=== PATIENT | female | born 1935 | race Caucasian/White ===

== ENCOUNTER 2019-11-10 10:30 | Day surgery (SDC) | payer MEDICARE, BC ==
[~2019-11-10] VITALS: Ht 177.8 cm; Wt 63.5 kg
[~2019-11-10 10:30] MED LIST: EYE DROPS 15 ML15 ML OP; FOLIC ACID 11 MG/TA1 PO; MIRALAX PA17 GM/Dose PO; MYRBETR50MG PO; NORCO 325 MG-51 TAB PO; OSCAL 500 TAB500 MG PO; RESTORIL 77.5 MG/CAP PO; TEMAZEPAM; VITAMIN C500 MG PO
[2019-11-10 11:15] VITALS: BP 149/86; PULSE 65; TEMP 97.4
[2019-11-10] MEDS ORDERED: FEMARA PO (11:22)
[2019-11-10] MEDS ORDERED: MYRBETR25MG PO (11:22)
[2019-11-10] MEDS ORDERED: PRIL40 PO (11:23)
[2019-11-10] MEDS ORDERED: MULTIPLE VITAMI1 CAP PO (11:24)
[2019-11-10] MEDS ORDERED: CALCIUM CITRAT950 MG PO (11:24)
[2019-11-10] MEDS ORDERED: HAIRSKINNAILS PO (11:24)
[2019-11-10] MEDS ORDERED: FLEET ENEM1 BOT/133 RC (11:26)
[2019-11-10] MEDS ORDERED: COLACE 100100 MG/CAP PO (11:28)
--- NOTE | 2019-11-10 11:29 | NUR ---
TO RM AT 1040 CALL LIGHT IN REACH FAMILY AT BEDSIDE
--- NOTE | 2019-11-10 14:01 | NUR ---
Initial visit; Patient requested prayer prior to surgical procedure. Marble Setter Helper offered comfort, encouragement and prayer for patient and family.
[2019-11-10 16:15] VITALS: BP 92/64; PULSE 70; TEMP 98.7
--- NOTE | 2019-11-10 16:15 | NUR ---
TO RM 5 PER CART FROM PACU. PATIENT HAD HEAD COVERED AND SHIVERING. RECEIVED 2 MORE WARM BLANKES AND BEAR HUGGER IN PLACE. C/O PAIN 2-3/10 AT CURRENT TIME. DENIES NAUEA. ONLY C/O AT THIS TIME IS BEING COLD. NOVA SET OVER INCISION SITES CLEAN DRY INTACT.
[2019-11-10 16:30] VITALS: BP 131/71; PULSE 64
--- NOTE | 2019-11-10 16:30 | NUR ---
SHIVERS LESS FREQUENT. 02 SAT 100% ON O2. DISCONTINUED O2 AT THIS TIME DENIES WANTING ANYTHING BY SHAKING HEAD "NO"
[2019-11-10] MEDS ORDERED: ULTRAM 50MG TAB50 MG PO (16:39)
[2019-11-10 16:45] VITALS: BP 124/63; PULSE 61
--- NOTE | 2019-11-10 16:45 | NUR ---
NO LONGER SHIVERING. OFFERED TO REMOVE BEAR HUGGER,IF PATIENT GETTING TOO HOT. PATIENT SHOOK HEAD NO TO TAKING IT OFF. FAMILY AT BEDSIDE.
[2019-11-10 17:00] VITALS: BP 116/53; PULSE 67
--- NOTE | 2019-11-10 17:00 | NUR ---
PATIENT MORE AWAKE SITTING UP TALKING TO STAFF AND FAMILY. TURNED OFF BEAR HUGGER. RECEIVED WARM WATER PER REQUEST.
--- NOTE | 2019-11-10 17:20 | NUR ---
RECEIVED VANILLA PUDDING.
[2019-11-10 17:28] VITALS: BP 113/69; PULSE 64; TEMP 97.3
--- NOTE | 2019-11-10 17:46 | NUR ---
ATE 100% PUDDING AND RECEIVED 2ND CUP OF WATER.
--- NOTE | 2019-11-10 17:50 | NUR ---
LITTLE LIGHT HEADED WHEN FIRST STOOD UP TO WALK TO BATHROOM. SAT DOWN FOR SHORT TIME AND THEN AMBULATED TO BATHROOM AND TOLERATED WELL. VOIDED AND AMBULATED BACK TO BED. VERBALIZED SHE WAS READY TO GO HOME.
--- NOTE | 2019-11-10 18:00 | NUR ---
RECEIVED DISCHARGE INSTRUCTIONS AND VERBALIZED UNDERSTANDING. DISCONTINUED IV AND INT- CATHETER INTACT. PATIENT GETTING DRESSED.
--- NOTE | 2019-11-10 18:30 | NUR ---
DISCHARGED PER WC BY NURSING STAFF TO PRIVATE CAR IN CARE OF DAUGHTERS AND TO RETURN TO [facility].
== END 2019-11-10 18:40 | disposition home or self-care (01) ==
LOC: SDCO 10:30
DX: K40.90 Unilateral inguinal hernia, without obstruction or gangrene, not specified as recurrent (principal); K41.90 Unilateral femoral hernia, without obstruction or gangrene, not specified as recurrent; Z79.899 Other long term (current) drug therapy; Z87.891 Personal history of nicotine dependence; Z88.5 Allergy status to narcotic agent; K21.9 Gastro-esophageal reflux disease without esophagitis; Z92.3 Personal history of irradiation; Z85.3 Personal history of malignant neoplasm of breast
CPT/HCPCS: A4314; C1781; J0690; J1100; J1200; J1885; J2405; J2704; J3010; J7120